=== PATIENT | male | born 1950 | race Caucasian/White ===

== ENCOUNTER 2017-03-25 01:22 | Inpatient (IN) | payer MEDICARE ==
--- NOTE | ~2017-03-25 | CR72 ---
[facility] A Service of [facility] RADIOLOGY TEXT RESULTS PATIENT: ORIN ROMERO LOCATION: [address] : [birth year] UNIT #: [id number] AGE: [address]: Arie Sharpe MD SEX: M ORDER DR: [id number] [facility] [address] [place], [place] [address] [id number] MR#: [id number] Acc #: [id number] NAME: ORIN ROMERO. : 1950 SEX: M STUDY DATE/TIME: 03/28/2017 16:29 UNIT: [facility] ROOM: [facility] STUDY DESCRIPTION: CR Chest Single View Portable Attending Physician: Arie Sharpe M.D. Ordering Physician: Adriano Monroe M.D. Primary Care Physician: Castro Wood M.D. MEDICAL IMAGING REPORT This report is preliminary unless electronic signature is present EXAM Portable chest INDICATIONS Status post thoracotomy. Chest tube placement. Followup. PROCEDURE Frontal view chest. COMPARISON 03/28/2017 at 05:23 hours FINDINGS There are 2 left-sided chest tubes in place, appropriately positioned. Small amount of subcutaneous emphysema along the lower left chest. The pleural effusion has significantly improved, and there is no visible pneumothorax. IMPRESSION 2 left-sided chest tubes in place. The left effusion is improved, and there is no visible pneumothorax. Dictated by... Jason Allen M.D. THIS IS AN ELECTRONICALLY VERIFIED REPORT Jason Allen M.D. at 03/29/2017 10:38 AM EVE/sadia TD: 03/28/2017 17:50 JOB #: [id number] [facility] A Service [facility] RADIOLOGY TEXT RESULTS PATIENT: ORIN ROMERO LOCATION: [address] : [birth year] UNIT #: [id number] AGE: [address]: Arie Sharpe MD SEX: M ORDER DR: MEDICAL IMAGING REPORT Page 1 of 1 COPY
--- NOTE | ~2017-03-25 | CO ---
Unit #: [id number] #: [id number] Patient: ORIN ROMERO [id number] [facility]. [place] [id number] [facility]. [place], [place] [address] [id number] MR#: [id number] NAME: ORIN ROMERO ROOM: 553 Age: 66 Sex: M Admission Date: 03/25/2017 : 1950 Attending Physician: Arie Sharpe M.D. Primary Care Physician: Castro Wood M.D. Consultation Date: 03/27/2017 CONSULTATION REPORT REASON FOR CONSULTATION Cardiac clearance for VATS. HISTORY OF PRESENT ILLNESS This is a 66-year-old white male who is known to Dr. Queen who she sees in the office. He had an ST elevated NE back in 2013, had a stent placed to the first obtuse marginal at the left circumflex. He had some other nonobstructive CAD. His ejection fraction at that time was 45%. His last MUGA scan was in June last year. It was 48%. The patient has COPD, hypertension, hyperlipidemia. He is still actively smoking. He came to the emergency room with complaints of left side lower ribcage area pain along with increased shortness of breath which was worsening in the last three days. The patient denies having any chest pain, pain in his neck, bilateral jaws, shoulders, arms or elbow. He denies any palpitations. No dizziness, presyncope or syncope. He is having occasional cough with yellow sputum but denies any hemoptysis. No fever or chills. He has not had any abdominal pain. No nausea, vomiting or diarrhea. Since x-rays and CT of the chest has been done, the patient was found to have a loculated left pleural effusion with some compressive atelectasis. Also, he has leukocytosis. The plans are for the patient to have a left VATS by Dr. Monroe possibly tomorrow if cardiology clears the patient. We have been consulted to evaluate. PAST MEDICAL HISTORY 1. In [address] elevated NE, status post cardiac cath, status post PCI and stent to the first obtuse marginal at the left circumflex. Other findings - left main had a distal 50% stenosis, LAD 40% stenosis, RCA mid 30% stenosis with LVEF of 45%. 2. 06/2016 2D echo. LVEF of 30% to 35% with severe inferior wall hypokinesis with mild mitral regurgitation, mild tricuspid regurgitation with small pericardial effusion. 3. Hypertension. 4. Hyperlipidemia. 5. Osteoarthritis. 6. COPD. 7. 06/2016 MUGA scan. 48%. 8. Nicotine abuse. 9. Problems with some hypotension. PAST SURGICAL HISTORY 1. Appendectomy. 2. Status post PCI and stent to the obtuse marginal at the left circumflex. Unit #: [id number] #: [id number] Patient: ORIN ROMERO 3. Knee surgery. HOME MEDICATIONS 1. Metoprolol 25 mg p.o. daily. 2. Simvastatin 20 mg p.o. daily at bedtime. 3. Plavix 75 mg daily. ALLERGIES No known drug allergies. SOCIAL HISTORY The patient lives with his family. He does smoke about a pack of cigarettes a day. He has been smoking all of his adult life. No alcohol or illicit drug abuse. FAMILY HISTORY He had an older brother that in his 20s from unknown causes. Other than that, his parents and other siblings are in generally well health. REVIEW OF SYSTEMS See details in HPI. PHYSICAL EXAMINATION GENERAL: On exam, Mr. Romero is a 66-year-old white male in no acute respiratory distress. He is awake, alert and oriented. VITAL SIGNS: Blood pressure is 114/61, heart rate 98, respirations 18, temperature 97.9, O2 sats 96% on room air. NECK: Trachea midline. No thyromegaly or lymphadenopathy. Normal carotid upstrokes. No jugular venous distention. HEART: S1, S2. Regular rate and rhythm. Soft systolic murmur left sternal border. LUNGS: Very diminished. Absent breath sounds in left lower lung base. ABDOMEN: Soft, nontender. Positive bowel sounds present. EXTREMITIES: Pedal pulses are palpable. No pedal edema. Pedal pulses are faint. DIAGNOSTIC STUDIES LABORATORY: ABGs on admission - pH 7.377, pCO2 39.8, pO2 56.3 and O2 sat was 87.8. Glucose is 231, BUN 15, creatinine 0.7, eGFR 98.4, sodium 138, potassium 4.9, chloride 104, CO2 25, calcium 8.5, total protein 7.1, albumin 3.6, bili total 1.0. AST 20, ALT 19, alkaline phos. is 76. TSH is 0.73. WBC elevated to 26.4, hemoglobin 11.9, hematocrit 36.4 and platelets of 359. Initial cardiac enzymes - CK MB less than 1.0, troponin less than 0.05, CK total 29, troponin less than 0.03. INR is 1.1. IMAGING: On admission, chest x-ray showed emphysema with left bibasilar pneumonia and also may be a left hilar mass. CT angio of the chest with PE protocol showed a dense consolidation involving the left lower lobe with a large loculated left pleural effusion. No air in the left lower lobe bronchial tree and concerning for a postobstructive process, possibly due to a mass or just severe mucus plugging, most concerning for pneumonia. Lymphadenopathy in the mediastinum. Underlying emphysema. Small amount of consolidation in the Unit #: [id number] #: [id number] Patient: ORIN ROMERO right lower lung. No evidence of pulmonary embolism or thoracic aortic dissection and probably a small amount of pericardial effusion. CARDIOVASCULAR: EKG shows normal sinus tachycardia with ventricular rate 101 beats/minute, low voltage in inferior leads in V1. Poor R wave progression. IMPRESSION 1. Acute on chronic hypoxic respiratory distress: He has a left loculated effusion with compressive atelectasis. 2. Exacerbation of chronic obstructive pulmonary disease. 3. Probable pneumonia. 4. History of coronary artery disease. In [address] elevated myocardial infarction, status post PCI and stent to the obtuse marginal at the left circumflex. 5. Left ventricular ejection fraction of 48% on MUGA scan 06/2016. Last echo showed left ventricular ejection fraction of 30% to 35%. 6. Hypotension. 7. Hyperlipidemia. 8. Nicotine abuse. PLAN 1. Cardiology consulted to evaluate patient to clear for surgery that Dr. Monroe plans to do in the next day or so. He wants to perform an LVAD with decortication. 2. On exam, there are no signs or symptoms of unstable angina or acute congestive heart failure. 2D echo has been ordered to re-evaluate and to make sure there is no pericardial effusion. 3. The plans are for the patient to have a thoracentesis today. 4. The patient has been on Plavix and aspirin since his heart attack. Will hold the Plavix for the procedure. His last dose was the day before yesterday. Continue patient on his statin. The patient is also on metoprolol 25 mg extended release. Will continue that with parameters and make any adjustments to avoid any hypotension. 5. The patient is on IV antibiotics. 6. Dr. Carrillo of [facility] is assisting with management. After Dr. Queen reviewed the patient's records and after examination and finding he had no symptoms of angina or congestive heart failure, she feels it is permissible to undergo a procedure at moderate acceptable risk. His Plavix has been held since yesterday. The patient will be ordered to get his beta sha perioperatively. We will follow this patient closely. Thank you very much for allowing us to assist in her care. Further recommendations pending per Dr. Queen. Dictated by... Annabel North A.P.R.N. for Benjamín Harry/sergio TD: 03/27/2017 11:05 JOB #: [id number] Unit #: [id number] #: [id number] Patient: ORIN ROMERO CONSULTATION REPORT Page 1 of 1 X Annabel North APRN CONSULTATION REPORT
--- NOTE | ~2017-03-25 | OR ---
Unit #: [id number] #: [id number] Patient: ORIN ROMERO [id number] [address] [place], [place] [address] [id number] MR#: [id number] NAME: ORIN ROMERO ROOM: [facility] Date of Procedure: 03/28/2017 Admission Date: 03/25/2017 Surgeon: Adriano Monroe M.D. : 1950 Attending Physician: Arie Sharpe M.D. Primary Care Physician: Castro Wood M.D. OPERATIVE REPORT PREOPERATIVE DIAGNOSIS Loculated left pleural effusion; left-sided pneumonia. POSTOPERATIVE DIAGNOSIS Loculated left pleural effusion; left-sided pneumonia. PROCEDURE PERFORMED Left video-assisted thoracoscopy with decortication. ANESTHESIA General. ESTIMATED BLOOD LOSS About 100 mL. DRAINS Two #28 chest tubes. COMPLICATIONS None. DESCRIPTION OF PROCEDURE The patient was taken to the operating room and placed on the operating room table in a supine position. After appropriate monitoring lines had been placed, general endotracheal anesthesia was then induced using a double-lumen endotracheal tube. Adequate positioning of this tube was ensured using the pediatric bronchoscope. A left radial arterial line was inserted per the Anesthesia Department. A Davila catheter was inserted. Following this, the patient was placed on the operating room table in a right lateral decubitus position. A rolled sheet was placed beneath the right axillary area. The patient was secured in place on the operating room table using a welch bag as well as tape across the left hip. The left arm was supported anteriorly on an arm support. The left chest was prepped with DuraPrep and draped in a sterile fashion. A small 1.5 cm skin incision was made in the midaxillary line at about the seventh intercostal space. The incision was carried down through the subcutaneous tissue and muscle and fascial layers using the Bovie. With the left lung being deflated, the chest was entered at this level using a gloved finger and a trocar introducer then inserted. The thoracoscope was then passed per this trocar introducer and examination of the pleural space carried out. In the lower chest, there was marked fibrinous exudative material present, which was grayish in color. This material covered the chest wall Unit #: [id number] #: [id number] Patient: ORIN ROMERO as well as the lung and seemed to entrap the lung somewhat. It extended up to involve most all of the left lower lobe and a portion of the left upper lobe. About a 4 cm skin incision was made in the anterior axillary line over the fifth intercostal space. The incision was carried down through the subcutaneous tissue and muscle and fascial layers with hemostasis being obtained using the Bovie. Following this, another small counterincision was made posteriorly in the chest for passage of instruments. Some of the fluid present in the left pleural space was aspirated free and sent for cytology as well as cultures. A large cupped forceps was used to remove as much of the loose debris from the pleural space as was possible. A large Cordova dissector was used to scrape the fibrinous debris from the chest wall as well as the diaphragm. As this material was dissected free, it was then removed from the chest cavity using the large cupped biopsy forceps or the suction. Lung was dissected free and then grasped with ring lung clamps. The large Cordova dissector was then used to dissect the fibrinous peel from the lung. This material was then removed from the chest cavity using the large cupped forceps. Some of the smaller material was removed using the suction. After as much of this material had been removed from the lung as was possible, the chest was irrigated with warm normal saline solution. This normal saline solution was aspirated free and then after a second irrigation had been carried out and suctioned free, two #28 chest tubes were inserted and brought out through separate stab wounds in the lower chest. They were sutured in place to the skin using 2-0 silk suture. They were then connected to a Pleur-evac. The 2 incisions in the chest were closed using 2-0 Vicryl for the muscle and fascial layer, 3-0 Vicryl for the subcutaneous tissue, and running 4-0 Vicryl subcuticular stitch for the skin. Sterile dressings were applied. Estimated blood loss in the procedure was about 100 mL. Sponge and needle counts in the operation were correct. The patient left the operating room in satisfactory condition. Dictated by... Benjamín Lauren/estrella TD: 03/28/2017 23:53 JOB #: [id number] OPERATIVE REPORT Page 1 of 1 X Adriano Monroe MD PROCEDURE OPERATIVE NOTE
--- NOTE | ~2017-03-25 | CR72 ---
[facility] A Service of [facility] RADIOLOGY TEXT RESULTS PATIENT: ORIN ROMERO LOCATION: [address] : [birth year] UNIT #: [id number] AGE: [address]: Arie Sharpe MD SEX: M ORDER DR: [id number] [facility] [address] [facility]. [place], [place] [address] [id number] I MR#: [id number] Acc #: [id number] NAME: ORIN ROMERO : 1950 SEX: M STUDY DATE/TIME: 03/31/2017 7:39 UNIT: [facility] ROOM: [facility] STUDY DESCRIPTION: CR Chest Single View Portable Attending Physician: Arie Sharpe M.D. Ordering Physician: Rosana Montaño A.P.R.N. Primary Care Physician: Castro Wood M.D. MEDICAL IMAGING REPORT This report is preliminary unless electronic signature is present EXAM Portable chest, 03/31/2017. HISTORY Status post chest tube removal today. Shortness of air. COMPARISON Chest 03/31/2017 at 0448 hours. FINDINGS Frontal chest demonstrates removal of the left-sided chest tubes. No pneumothorax. Bibasilar infiltrates are unchanged. Heart size and mediastinum are stable. IMPRESSION 1. Interval removal of the left-sided chest tubes. No visible pneumothorax. 2. No change in bibasilar infiltrates. Dictated by... Mauri Byrnes M.D. THIS IS AN ELECTRONICALLY VERIFIED REPORT Mauri Byrnes M.D. at 04/01/2017 6:20 AM KENNEDY/waqas TD: 03/31/2017 09:34 JOB #: [id number] MEDICAL IMAGING REPORT Page 1 of 1 COPY
--- NOTE | ~2017-03-25 | CO ---
Unit #: [id number] #: [id number] Patient: ORIN ROMERO [id number] [address] [place], [place] [address] [id number] MR#: [id number] NAME: ORIN ROMERO ROOM: [facility] Age: 66 Sex: M Admission Date: 03/25/2017 : 1950 Attending Physician: Arie Sharpe M.D. Primary Care Physician: Castro Wood M.D. Consultation Date: 03/31/2017 CONSULTATION REPORT REASON FOR CONSULTATION Pneumonia and antibiotic management. HISTORY OF PRESENT ILLNESS This is a 66-year-old male, who reports greater than two week history of increasing cough with whitish phlegm at home. The patient reports that he thought that this cough was different than his usual cough being a tobacco smoker for several years. The patient denied having any fever or chills at home. He reported that he did have some rhinorrhea but did not think much of it. The patient progressed to a significant left-sided chest pain with cough and came to the hospital to the emergency room. A CT scan of the chest was done which showed large left effusion which was loculated as well as some pneumonia. The patient had an attempted thoracentesis but eventually underwent a left video-assisted thoracotomy with decortication by Dr. Monroe three days ago. The patient, since the procedure, has had increasing right-sided infiltrate but improving leukocytosis and clinically the patient reports feeling much better. The patient is maintained on vancomycin, Zosyn, and azithromycin. PAST MEDICAL HISTORY Includes, coronary artery disease, status post stent in 2013, [place], right knee scope in 2007 and appendectomy in 2015. ALLERGIES No known allergies. MEDICATIONS As previously stated, vancomycin, Zosyn, and azithromycin. For further medications please refer to the patient's MAR. SOCIAL HISTORY Positive tobacco abuse, no alcohol abuse, no IV drug abuse. 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 REVIEW OF SYSTEMS The patient denies any significant fever, chills, or sweats at home. He denies any nausea, vomiting, or diarrhea. He denied any urinary tract infection, signs or symptoms, edema, or change in skin at home. He does report increasing left flank pain associated with cough with progressive productive sputum and cough. The patient denies any weight loss; however, on report to the surgery team, he did report some weight loss. PHYSICAL EXAMINATION Unit #: [id number] #: [id number] Patient: ORIN ROMERO VITAL SIGNS: Temperature is 97.8 with no documented fever, pulse is 57, blood pressure 130/80, and respiratory rate is 28. GENERAL: This is a no apparent distress male who is currently sitting in the chair on high flow oxygen. HEENT: His pupils are equal. NECK: His neck is supple. CARDIOVASCULAR: S1 and S2, regular rate and rhythm. PULMONARY: Diminished with faint rales noted in the bases on both left and right. Chest tube was recently removed. ABDOMEN: Positive bowel sounds, soft, and nontender. EXTREMITIES: No clubbing, cyanosis, or edema. DIAGNOSTIC STUDIES LABORATORY: BUN 20, creatinine 0.6, sodium 135, potassium 4.3, chloride 104, CO2 28, bilirubin 0.5, AST 58, ALT is 165, lactic acid 0.6, white blood cell count is 17.3, which is improved from 26.4, on March 27, hemoglobin 12.3, hematocrit 38.1, platelets 376. Pathology of lung tissue is currently pending, cultures are currently negative to date. Blood cultures are currently negative. DIAGNOSTIC IMAGING: Chest x-ray, left basilar air space opacity in right infrahilar air space opacity similar to prior studies. CT scan of the chest, on March 25, please see full report for complete details. There is a dense consolidation in the left lower lobe with loculated left pleural effusion. No evidence of pulmonary emboli. IMPRESSION This is a 66-year-old male, with greater than two week history of progressive cough different than his usual with sputum production that was white in nature with associated rhinorrhea. The patient denied any actual fever or chills at home. The patient had no exposure to ill persons but does have significant exposure in the past with toxins and chemicals including coal and tobacco, and worked at a chemical plant. The patient was found to have left-sided pneumonia with large effusion, status post video-assisted thoracotomy with decortication. Cultures are currently negative to date and cytology/pathology is currently pending. The patient remains in ICU and clinically reports doing much better but remains on high flow oxygen and chest film is concerning for increasing infiltrate on the right side of his lung. At this time, will continue broad spectrum antibiotics with vancomycin, Zosyn, and azithromycin. Would recommend to check urine for strep pneumo-antigen and Legionella as it appears that it has been ordered by not yet done. If the patient's chest x-ray continues to have increasing right-sided infiltrate may need to repeat a CT scan; however, the patient currently appears stable at this time and clinically feels like he is improving. This case will be discussed with Dr. Reynaldo Sainz who will evaluate this patient today. Thank you for allowing us to participate in the care of this patient. Further recommendations to follow pending the patient's clinical course. Unit #: [id number] #: [id number] Patient: ORIN ROMERO. Anastasiya Dove A.P.R.N. for Benjamín Perez/jack TD: 03/31/2017 12:09 JOB #: [id number] CONSULTATION REPORT Page 1 of 1 X X CONSULTATION REPORT
--- NOTE | ~2017-03-25 | EKG ---
PATIENT: ORIN ROMERO UNIT #: [id number] Ventricular Rate: 96 BPM Atrial Rate: 96 BPM P-R Interval: 114 ms QRS Duration: 82 ms Q-T Interval: 336 ms QTC Calculation(Bezet): 424 ms P Dennison: 73 degrees Calculated R Dennison: 67 degrees Calculated T Dennison: 59 degrees Diagnosis Line: Normal sinus rhythm Diagnosis Line: Low voltage QRS Diagnosis Line: Borderline ECG Diagnosis Line: When compared with ECG of 25-MAR-2017 02:57, Diagnosis Line: (unconfirmed) Diagnosis Line: No significant change was found Diagnosis Line: Confirmed by KRISSY BEAUCHAMP MD ([id number]) on 03/26/2017 Diagnosis Line: 5:45:25 AM INTERPRETING MD: QUYNH CATALAN
--- NOTE | ~2017-03-25 | CR72 ---
[facility] A Service of [facility] RADIOLOGY TEXT RESULTS PATIENT: ORIN ROMERO LOCATION: [place] [address] : [birth year] UNIT #: [id number] AGE: [address]: Arie Sharpe MD SEX: M ORDER DR: [id number] [facility] [address] [facility]. [place], [place] [address] [id number] I MR#: [id number] Acc #: [id number] NAME: ORIN ROMERO : 1950 SEX: M STUDY DATE/TIME: 03/28/2017 5:23 UNIT: [facility] ROOM: [facility] STUDY DESCRIPTION: CR Chest Single View Portable Attending Physician: Arie Sharpe M.D. Ordering Physician: Arie Sharpe M.D. Primary Care Physician: Casrto Wood M.D. MEDICAL IMAGING REPORT This report is preliminary unless electronic signature is present EXAM Portable chest HISTORY Chest pain, cough, shortness of air for three days. Previous thoracentesis 03/28. COMPARISON: 03/25 FINDINGS Today's portable view of the chest shows reaccumulation of the left pleural effusion. It is now moderate in size and there is left lower lobe atelectasis. The right lung is clear except for minimal right base atelectasis and the heart size is normal. Dictated by... Carlos Bingham M.D. THIS IS AN ELECTRONICALLY VERIFIED REPORT Carlos Bingham M.D. at 03/28/2017 8:41 AM CASSANDRA/brian TD: 03/28/2017 07:33 JOB #: [id number] MEDICAL IMAGING REPORT Page 1 of 1 COPY
--- NOTE | ~2017-03-25 | XA203 ---
[facility] A Service of [facility] & [facility] RADIOLOGY TEXT RESULTS PATIENT: ORIN ROMERO LOCATION: [facility] 55- : 50 UNIT #: [id number] AGE: [address]: Arie Sharpe MD SEX: M ORDER DR: [id number] [place] [id number] [facility]. [place], [place] [address] [id number] I MR#: [id number] Acc #: [id number] NAME: ORIN ROMERO : 1950 SEX: M STUDY DATE/TIME: 03/26/2017 15:17 UNIT: [facility] ROOM: [facility] STUDY DESCRIPTION: XA Thoracentesis Attending Physician: John Desai M.D. Ordering Physician: Nick Carrillo M.D. Primary Care Physician: Castro Wood M.D. MEDICAL IMAGING REPORT This report is preliminary unless electronic signature is present EXAM Attempted ultrasound guided thoracentesis HISTORY This patient is a 66-year-old patient who underwent a CT scan of the chest on 03/25/2017 which showed a left pleural effusion. This did appear to be partially loculated. PROCEDURE The risks, benefits, and alternatives to the procedure were explained to the patient and signed, informed consent was obtained. He was seated in the upright position and a preliminary ultrasound of the left hemithorax was performed. This demonstrated markedly complex material with no discrete drainable pockets of fluid seen. Debris and multiple septations were identified. At this point the procedure was terminated. IMPRESSION Markedly complex material within the left hemithorax without discrete drainable fluid collection seen. Innumerable septations and debris are identified within this collection. Thoracic surgery consultation suggested. Dictated by... Deanne Kaminski M.D. THIS IS AN ELECTRONICALLY VERIFIED REPORT Deanne Kaminski M.D. at 03/27/2017 4:43 PM AFF/jw TD: 03/27/2017 09:30 JOB #: [id number] STS. [facility] A Service of [facility] & [facility] RADIOLOGY TEXT RESULTS PATIENT: ORIN ROMERO LOCATION: [place] [address] : 50 UNIT #: [id number] AGE: [address]: Arie Sharpe MD SEX: M ORDER DR: MEDICAL IMAGING REPORT Page 1 of 1 COPY
--- NOTE | ~2017-03-25 | CT57 ---
[facility] A Service of [facility] & [facility] RADIOLOGY TEXT RESULTS PATIENT: ORIN ROMERO LOCATION: [facility] [id number] : 50 UNIT #: [id number] AGE: [address]: Arie Sharpe MD SEX: M ORDER DR: [id number] [facility] [address] [facility]. [place], [place] [address] [id number] I MR#: [id number] Acc #: [id number] NAME: ORIN ROMERO : 1950 SEX: M STUDY DATE/TIME: 04/01/2017 14:53 UNIT: [facility] ROOM: [facility] STUDY DESCRIPTION: CT Chest Wo Cont Attending Physician: Arie Sharpe M.D. Ordering Physician: Nick Carrillo M.D. Primary Care Physician: Castro Wood M.D. MEDICAL IMAGING REPORT This report is preliminary unless electronic signature is present EXAM Chest CT, no contrast, 04/01/2017 INDICATIONS 66-year-old male with shortness of air since March 22, left-sided chest pain for a week. Pneumonia. TECHNIQUE Noncontrast CT chest was performed and compared with 03/25/2017. This CT exam was performed with one or more of the following radiation dose reduction techniques: Automatic exposure control, adjustment of mA and/or kV according to patient size, and iterative reconstruction. FINDINGS CT CHEST: There is advanced emphysema. Trace to small right-sided effusion, new compared to the prior study. There is persistent consolidation in the right lower lobe, which may reflect atelectasis or pneumonia. On the left, there has been significant interval decrease in size of the left-sided effusion. Improved aeration of the left lower lobe. There is residual atelectasis or pneumonia in the left lung base. Associated with the major fissure, there is an area of probable rounded atelectasis although it has somewhat irregular margins and is somewhat nodular configuration, measuring up to 2.8 cm. Follow up to clearing after appropriate therapy is recommended. This area has either developed in the short term or was obscured on the prior study by the greater degree of consolidation. No pneumothorax. Included thyroid unremarkable. Small amount of pericardial fluid near the cardiac apex. No new axillary adenopathy. Probable reactive mediastinal nodes. Aorta demonstrates no aneurysm. There is old healed granulomatous disease. Coronary artery calcifications present. Included upper abdomen demonstrates mild anasarca and trace perihepatic STS. [facility] A Service of [facility] & [facility] RADIOLOGY TEXT RESULTS PATIENT: ORIN ROMERO LOCATION: [place] [address] : 50 UNIT #: [id number] AGE: [address]: Arie Sharpe MD SEX: M ORDER DR: ascites. No free air. No new suspicious bone lesion. IMPRESSION 1. Improved appearance of the lungs compared to the prior study. Improved aeration and decreasing consolidation of the left lower lobe since the prior study with residual atelectasis or pneumonia as described. 2. More nodular appearing area of probable rounded atelectasis in the superior segment, left lower lobe measures 2.8 cm. Follow up to clearing after appropriate therapy recommended. 3. Interval development of a trace to small right-sided effusion with persistent atelectasis or pneumonia in the right lung base. 4. Background changes of emphysema. 5. Small pericardial effusion. 6. Anasarca and a small amount of upper abdominal ascites. Dictated by... Ward Lutz M.D. THIS IS AN ELECTRONICALLY VERIFIED REPORT Ward Lutz M.D. at 04/01/2017 8:43 PM ATILIO/ashwin TD: 04/01/2017 16:34 JOB #: [id number] MEDICAL IMAGING REPORT Page 1 of 1 COPY
--- NOTE | ~2017-03-25 | EKG ---
PATIENT: ORIN ROMEOR UNIT #: [id number] Ventricular Rate: 89 BPM Atrial Rate: 89 BPM P-R Interval: 118 ms QRS Duration: 94 ms Q-T Interval: 370 ms QTC Calculation(Bezet): 450 ms P [place]: 65 degrees Calculated R [place]: 51 degrees Calculated T [place]: 39 degrees Diagnosis Line: Normal sinus rhythm Diagnosis Line: Low voltage QRS Diagnosis Line: Borderline ECG Diagnosis Line: When compared with ECG of 25-JUL-2014 06:46, Diagnosis Line: Premature atrial complexes are no longer Present Diagnosis Line: Vent. rate has increased BY 31 BPM Diagnosis Line: ST no longer elevated in Inferior leads Diagnosis Line: Nonspecific T wave abnormality now evident in Diagnosis Line: Anterior leads Diagnosis Line: Confirmed by AMBAR NUÑEZ MD ([id number]) on Diagnosis Line: 03/26/2017 8:36:41 AM INTERPRETING MD: JOAQUIN CATALAN
--- NOTE | ~2017-03-25 | CR72 ---
[facility] A Service of [facility] & [facility] RADIOLOGY TEXT RESULTS PATIENT: ORIN ROMERO LOCATION: [place] [address] : 50 UNIT #: [id number] AGE: [address]: John Desai MD SEX: M ORDER DR: [id number] [facility] [address] [place], [place] [address] [id number] I MR#: [id number] Acc #: [id number] NAME: ORIN ROMERO : 1950 SEX: M STUDY DATE/TIME: 03/25/2017 02:10 UNIT: [facility] ROOM: [facility] STUDY DESCRIPTION: CR Chest Single View Portable Attending Physician: John Desai M.D. Ordering Physician: Mario Graves M.D. Primary Care Physician: Castro Wood M.D. MEDICAL IMAGING REPORT This report is preliminary unless electronic signature is present EXAM Portable chest, 03/25 at 02:10 INDICATIONS Shortness of air and left side chest pain and weakness for 3 days. FINDINGS AP portable views of the chest are compared with 07/02/2015. There is emphysema. Right lung is clear. There is infiltrate at the left base, which likely reflects pneumonia. There is a potential left hilar mass. Follow up with a contrast-enhanced chest CT recommended. IMPRESSION Emphysema with left basilar pneumonia. There may be a left hilar mass. Follow up with contrast chest CT recommended. Dictated by... Jones Garcia Jr., M.D. THIS IS AN ELECTRONICALLY VERIFIED REPORT Jones Garcia Jr., M.D. at 03/25/2017 9:23 PM DHAVAL/ashwin TD: 03/25/2017 19:24 JOB #: [id number] MEDICAL IMAGING REPORT Page 1 of 1 COPY
--- NOTE | ~2017-03-25 | CR72 ---
[facility] A Service of [facility] RADIOLOGY TEXT RESULTS PATIENT: ORIN ROMERO [address]ATION: [address] : 50 UNIT #: [id number] AGE: [address]: Arie Sharpe MD SEX: M ORDER DR: [id number] [facility] [address]. [place], [place] [address] [id number] I MR#: [id number] Acc #: [id number] NAME: ORIN ROMERO : 1950 SEX: M STUDY DATE/TIME: 03/29/2017 04:36 UNIT: [facility] ROOM: [facility] STUDY DESCRIPTION: CR Chest Single View Portable Attending Physician: Arie Sharpe M.D. Ordering Physician: Adriano Monroe M.D. Primary Care Physician: Castro Wood M.D. MEDICAL IMAGING REPORT This report is preliminary unless electronic signature is present EXAM Portable chest 03/29/2017 04:36 INDICATION Pneumonia. Shortness of air. Left side chest pain. FINDINGS AP portable view of the chest is compared with 03/28/2017. Heart size stable. There is emphysema. 2 left chest tubes remain in place. No pneumothorax on either side of the chest. There is slight increase in infiltrate or atelectasis at the right base. Dictated by... Jones Garcia Jr., M.D. THIS IS AN ELECTRONICALLY VERIFIED REPORT Jones Garcia Jr., M.D. at 03/29/2017 10:14 PM DHAVAL/isaiah TD: 03/29/2017 07:23 JOB #: [id number] MEDICAL IMAGING REPORT Page 1 of 1 COPY
--- NOTE | ~2017-03-25 | EKG ---
PATIENT: ORIN ROMERO UNIT #: [id number] Ventricular Rate: 119 BPM Atrial Rate: 119 BPM P-R Interval: 130 ms QRS Duration: 86 ms Q-T Interval: 302 ms QTC Calculation(Bezet): 424 ms P [place]: 72 degrees Calculated R [place]: 55 degrees Calculated T [place]: 2 degrees Diagnosis Line: Sinus tachycardia Diagnosis Line: Low voltage QRS Diagnosis Line: Nonspecific T wave abnormality Diagnosis Line: Abnormal ECG Diagnosis Line: When compared with ECG of 25-MAR-2017 09:17, Diagnosis Line: (unconfirmed) Diagnosis Line: Nonspecific T wave abnormality, worse in Inferior Diagnosis Line: leads Diagnosis Line: Nonspecific T wave abnormality now evident in Diagnosis Line: Anterior leads Diagnosis Line: Confirmed by KRISSY BEAUCHAMP MD ([id number]) on 03/26/2017 Diagnosis Line: 5:51:19 AM INTERPRETING MD: QUYNH CATALAN
--- NOTE | ~2017-03-25 | CR71 ---
[facility] A Service of [facility] RADIOLOGY TEXT RESULTS PATIENT: ORIN ROMERO LOCATION: [place] [address] : 50 UNIT #: [id number] AGE: [address]: Arie Sharpe MD SEX: M ORDER DR: [id number] [facility] [address] [facility]. [place], [place] [address] [id number] I MR#: [id number] Acc #: [id number] NAME: ORIN ROMERO : 1950 SEX: M STUDY DATE/TIME: 04/02/2017 7:05 UNIT: C4 ROOM: [facility] STUDY DESCRIPTION: CR Chest Single View Attending Physician: Arie Sharpe M.D. Ordering Physician: Jama Nj M.D. Primary Care Physician: Castro Wood M.D. MEDICAL IMAGING REPORT This report is preliminary unless electronic signature is present EXAM Portable chest, 04/02 COMPARISON 04/01 HISTORY Pneumonia, shortness of breath, cough, symptoms beginning 03/25/2017. FINDINGS An AP portable view is obtained. Cardiac size is stable. Continued consolidation at the left base. There is some increased density in the right base that I think is largely fluid within the fissures and some atelectasis. CONCLUSION Continued left lower lobe consolidation. Patchy density at the right base likely largely pleural fluid. Dictated by... Rich Lawton M.D. THIS IS AN ELECTRONICALLY VERIFIED REPORT Rich Lawton M.D. at 04/03/2017 5:06 PM Sea TD: 04/02/2017 08:01 JOB #: [id number] MEDICAL IMAGING REPORT Page 1 of 1 COPY
--- NOTE | ~2017-03-25 | CO ---
Unit #: [id number] #: [id number] Patient: BRENDAN ROMERO [id number] [address] [place], [place] [address] [id number] I MR#: [id number] NAME: BRENDAN ROMERO ROOM: 553 Age: 66 Sex: M Admission Date: 03/25/2017 : 1950 Attending Physician: John Desai M.D. Primary Care Physician: Castro Wood M.D. Requesting Physician: Arie Sharpe M.D. CONSULTATION REPORT REASON FOR THE CONSULT Loculated left pleural effusion. HISTORY OF PRESENT ILLNESS Mr. Brendan Romero is a 66-year-old male with a 4-week history of productive cough with thick yellow sputum, which has been intermittent in nature. He denies any fever or chills. He denies night sweats, but he does report a 15-pound weight loss in the last 3-4 months. He does have some dyspnea on exertion and left flank pain, which feels like a dull pressure, but occasionally has a sharp pleuritic-type pain. This is the reason that he presented to the hospital, as he was having pain on inspiration. He underwent a CT of the chest, which revealed a large left pleural effusion, which appears to be loculated with some compressive atelectasis of the left lower lobe with some areas of consolidation and mediastinal adenopathy. Dr. Carrillo has evaluated the patient and requested interventional radiology perform a thoracentesis. Dr. Sharpe has requested Dr. Monroe evaluate the patient, as well. PAST MEDICAL HISTORY Coronary artery disease status post intracoronary stenting [address] elevated myocardial infarction, under the care of Dr. Queen, on Plavix at home. The patient denies any other past medical history. SURGERIES Cardiac catheterization with intracoronary stenting 2013 and a right knee arthroscopy in 2007, an appendectomy in 2016. SOCIAL HISTORY One pack per day x50 years smoker. Currently smoking. No history of ETOH or illicit drug use. REVIEW OF SYSTEMS The patient has left flank pain, pleuritic-type pain. Positive for a weight loss and positive productive cough. PHYSICAL EXAMINATION VITAL SIGNS: Temperature is 98, heart rate 84, respiratory rate 18, blood pressure 139/96. GENERAL APPEARANCE: Patient is a thin, well-groomed, tall male, 66 years old, fair historian regarding his own medical history. Accompanied by his . NEUROLOGIC: He is intact. He is hard of hearing but no other focal neuro deficits. NECK: His neck is supple. Trachea midline. No thyromegaly. Unit #: [id number] #: [id number] Patient: BRENDAN ROMERO LYMPHATICS: No palpable cervical, supraclavicular, occipital lymphadenopathy. SKIN: Warm and dry and pink. No ulcerations. No icterus. HEENT: Normocephalic. No facial asymmetry. Sclera anicteric. LUNGS: Decreased but few crackles noted in the bases. No increase in AP diameter. The patient is on O2 at 4 liters per nasal cannula. CARDIOVASCULAR: S1, S2 without rub, without murmur. No S3 or S4. No peripheral edema. ABDOMEN: His abdomen is flat, soft. Bowel sounds positive. Nontender. No hepatosplenomegaly. EXTREMITIES: Extremities are warm and dry. No edema. No ulcer. No clubbing. No cyanosis. DIAGNOSTICS LABS: BUN 15, creatinine 0.8, sodium 134, potassium 5.3. Hemoglobin 12.3, hematocrit 37.4, platelets 312, WBC 21.7, which is up from 14.9. IMPRESSION 1. Loculated left pleural effusion. 2. Compressive atelectasis with consolidation. 3. Leukocytosis. PLAN Agree with Dr. Carrillo's plan for interventional radiology to do a thoracentesis if feasible. Fluid should be sent for (1)___, cell count, LDH, protein, cytology. Thank you very much for allowing us to participate in the care of your patient. If you have any questions, please do not hesitate to call. Dictated by... Rosana Montaño A.P.R.N. for Adriano Monroe M.D. RAYMOND/lennox TD: 03/26/2017 16:21 JOB #: [id number] CONSULTATION REPORT Page 1 of 1 X Rosana Montaño APRN X CONSULTATION REPORT
--- NOTE | ~2017-03-25 | HP ---
Unit #: [id number] #: [id number] Patient: ORIN ROMERO [id number] [address] [place], [place] [address] [id number] I MR#: [id number] NAME: ORIN ROMERO. ROOM: 553 Age: 66 Sex: M Admission Date: 03/25/2017 : 1950 Attending Physician: John Desai M.D. Primary Care Physician: Castro Wood M.D. HISTORY AND PHYSICAL REASON FOR ADMISSION Acute hypoxic respiratory failure and left sided chest pain. HISTORY OF PRESENT ILLNESS The patient is a very pleasant 66-year-old male, not recently followed by any particular primary care physician but followed by cardiology, Dr. Queen, who states that over the past two weeks he began developing left sided chest pain/discomfort, worse with deep inspiration and/or movement. Over the past 24 hours, it worsened to the point where he could no longer ambulate. He became concerned for possible underlying myocardial infarction and, therefore, presented to the hospital for further evaluation. While he was evaluated in the emergency room, he received Zofran and morphine. Underwent a chest x-ray which raised the possibility of acute infiltrate and has been admitted for community-acquired pneumonia. On currently evaluating him on the telemetry floor, he states that his left sided chest pain is worse than it was when he first got here. PAST MEDICAL HISTORY 1. Prior history of acute STEMI in 2013. 2. COPD. 3. Ongoing tobacco abuse. 4. Hypertension. 5. Hyperlipidemia. 6. Osteoarthritis. PAST SURGICAL HISTORY 1. Knee surgery. 2. Appendectomy. 3. Cardiac stents. MEDICATIONS Home medications include: 1. Metoprolol. 2. Simvastatin. 3. Plavix. ALLERGIES No known drug allergies. FAMILY HISTORY Reviewed and noncontributory or non-pertinent. Unit #: [id number] #: [id number] Patient: ORIN ROMERO SOCIAL HISTORY Positive tobacco use, negative alcohol use, negative illicit drug use. REVIEW OF SYSTEMS Please see HPI. Twelve point otherwise negative except for those positives noted in the HPI. PHYSICAL EXAMINATION VITAL SIGNS: Temperature 98.9, pulse 112, respiratory rate 28, blood pressure 118/72. GENERAL APPEARANCE: The patient is a 66-year-old frail male lying comfortably, in no acute distress. HEAD EXAM: Atraumatic, normocephalic. NECK EXAM: Supple. No JVD, no carotid bruit. CVS: S1, S2. Tachycardic without murmur. RESPIRATORY: Coarse breath sounds are noted with scattered rhonchi. Prolonged expiration also noted. GI/ABDOMEN EXAM: Scaphoid abdomen noted. Nontender, nondistended. EXTREMITIES: Lower extremity exam - no history of lower extremity edema, no calf tenderness. NEUROLOGICAL EXAM: The patient is A and O x3. He is a bit hard of hearing. PSYCHIATRIC EXAM: The patient demonstrates normal mood and affect. DIAGNOSTIC STUDIES LABORATORY: Initial laboratory studies do yield BMP showing normal creatinine, blood glucose of 131. CBC showing white count of 17,000, hemoglobin 12.6, lactic acid level 0.6. Initial cardiac enzyme set was negative. INITIAL IMPRESSION 1. Left sided chest pain. 2. Community-acquired pneumonia. 3. Prior history of coronary artery disease with stent placement. 4. Ongoing tobacco abuse. 5. Probable chronic obstructive pulmonary disease. 6. Acute respiratory failure with likely chronic obstructive pulmonary disease exacerbation. 7. Failure to thrive. PLAN Admission to telemetry floor. Follow cardiac enzymes, EKG. Stat CT chest PE protocol to rule out acute pulmonary embolism. Solu-Medrol aerosols, IV antibiotics. Will await studies before planning further disposition. Appropriate symptom management will be achieved. Possible consultation to Dr. Vallejo if patient's chest pain does not resolve. It seems likely it is more pulmonary at this particular time. Plans have been reviewed with patient as well as his present at bedside in detail. Further hospital course to follow. Dictated by Arie Sharpe M.D. Unit #: [id number] #: [id number] Patient: ORIN ROMERO ISN/df TD: 03/27/2017 07:11 JOB #: [id number] HISTORY AND PHYSICAL Page 1 of 1 X Arie Sharpe MD HISTORY AND PHYSICAL
--- NOTE | ~2017-03-25 | EKG ---
PATIENT: ORIN ROMERO UNIT #: [id number] Ventricular Rate: 101 BPM Atrial Rate: 101 BPM P-R Interval: 130 ms QRS Duration: 90 ms Q-T Interval: 336 ms QTC Calculation(Bezet): 435 ms P [place]: 71 degrees Calculated R [place]: 52 degrees Calculated T [place]: 38 degrees Diagnosis Line: Sinus tachycardia Diagnosis Line: Low voltage QRS Diagnosis Line: Borderline ECG Diagnosis Line: When compared with ECG of 25-MAR-2017 15:05, Diagnosis Line: Nonspecific T wave abnormality no longer evident Diagnosis Line: in Lateral leads Diagnosis Line: Confirmed by AMBAR NUÑEZ MD ([id number]) on Diagnosis Line: 03/27/2017 1:29:13 PM INTERPRETING MD: JOAQUIN CATALAN
--- NOTE | ~2017-03-25 | DS ---
Unit #: [id number] #: [id number] Patient: ORIN ROMERO [id number] [address] [place], [place] [address] [id number] I MR#: [id number] NAME: ORIN ROMERO ROOM: 549 Age: 66 Sex: M Admission Date: 03/25/2017 : 1950 Discharge Date: 04/04/2017 Attending Physician: Arie Sharpe M.D. Primary Care Physician: Castro Wood M.D. DISCHARGE SUMMARY REASON FOR ADMISSION Acute hypoxic respiratory failure, left-sided chest pain. 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 Initially, he stated that he felt as though he had pulled a muscle in his side and subsequently when it worsened over the past 24 hours, he presented to the ER for further evaluation. He underwent a chest x-ray in the emergency room which raised the possibility of acute infiltrate and was being admitted secondary to community-acquired pneumonia. Through his hospital course, we initially started him on IV antibiotics. Eventually in consideration of his overall clinical picture, patient had underwent CT chest which did raise the possibility of a loculated left-sided pleural effusion and/or questionable postobstructive pneumonia. In regard to the same, consultation was then placed to pulmonary services, Dr. Carrillo, as well as, Dr. Monroe of thoracic surgery services. Patient underwent left-sided VATS procedure by Dr. Monroe. Postoperatively, he otherwise did well. He was placed in the ICU initially and subsequently was transitioned to telemetry floor. Dr. Monroe continued to follow the patient through his hospital course. Dr. Carrillo as cytology teacher and pulmonary services continued to follow him as well. Cardiology services, Dr. Queen, was consulted secondary to preoperative clearance. She saw and evaluated patient on March 27, 2017. He was cleared from their standpoint. Patient did undergo 2D echocardiogram this hospital admission which did reveal left ventricular systolic dysfunction with an ejection fraction 25% to 30%. Mild mitral and tricuspid regurgitation was noted. He did have an elevated white count, at one time peaking at approximately 26,400. He was initially on IV Solu-Medrol secondary to his underlying history of COPD, but in regard to his loculated left pleural effusion as well as pneumonia, we did place consultation to infectious disease Unit #: [id number] #: [id number] Patient: ORIN ROMERO alex who continued and maintained his antibiotics through his hospital course. At time of discharge, they made a recommendation for clindamycin as well as Levaquin to be continued for an additional four days. The patient will follow up with Dr. Monroe on April 12, 2017 at 1:30 p.m. at [facility]. Patient will follow up with Dr. Claudia Burton at [facility] in the next 7-10 days to establish care. Patient's resting O2 saturation is currently 85% and therefore, he will be discharged home with home O2. Overall, patient's prognosis is guarded if he continues to smoke on a daily basis. He states at the present time that he will be quitting. FINAL DISCHARGE DIAGNOSES 1. Left-sided loculated pleural effusion. 2. Postobstructive pneumonia. 3. Leukocytosis, likely secondary to pneumonia versus IV Solu-Medrol. 4. Failure to thrive. 5. Tobacco abuse. 6. Underlying chronic obstructive pulmonary disease. 7. Systolic heart failure, ejection fraction 25% to 30%. 8. Coronary artery disease with prior stent placement secondary to acute myocardial infarction. 9. O2 dependent chronic respiratory failure. DISCHARGE MEDICATIONS 1. DuoNeb aerosol solution q.6 hours scheduled. 2. Tylenol 650 mg p.o. q.6 p.r.n. 3. Toprol XL 12.5 mg p.o. daily. 4. Simvastatin 20 mg p.o. daily. 5. Pepcid 20 mg p.o. b.i.d. 6. Plavix 75 mg p.o. daily. 7. Percocet 5/325 one to two tablets p.o. q.4-6 p.r.n. 8. Prednisone 30 mg p.o. daily x5 days. 9. Levaquin 500 mg p.o. daily x4 days. 10. Clindamycin 600 mg p.o. q.8 x4 days. DISCHARGE CONDITION Stable. DISCHARGE DISPOSITION Home. FOLLOWUP As detailed above, Dr. Burton at [facility] within 7-10 days to coordinate care at time of discharge. Dictated by... Arie Sharpe M.D. Unit #: [id number] #: [id number] Patient: ORIN ROMERO WADE/henry TD: 04/05/2017 11:15 JOB #: [id number] DISCHARGE SUMMARY Page 1 of 1 X Arie Sharpe MD X DISCHARGE SUMMARY
--- NOTE | ~2017-03-25 | CR72 ---
[facility] A Service of [facility] RADIOLOGY TEXT RESULTS PATIENT: ORIN ROMERO LOCATION: [facility] [address] : [birth year] UNIT #: [id number] AGE: [address]: Arie Sharpe MD SEX: M ORDER DR: [id number] [facility] [address] [facility]. [place], [place] [address] [id number] I MR#: [id number] Acc #: [id number] NAME: ORIN ROMERO : 1950 SEX: M STUDY DATE/TIME: 04/04/2017 7:13 UNIT: [facility] ROOM: [facility] STUDY DESCRIPTION: CR Chest Single View Portable Attending Physician: Arie Sharpe M.D. Ordering Physician: Rosana Montaño A.P.R.N. Primary Care Physician: Castro Wood M.D. MEDICAL IMAGING REPORT This report is preliminary unless electronic signature is present EXAM Frontal chest 04/04/2017 INDICATION 66-year-old male with a history of chest tube removal. Prior smoker, shortness of air. COPD, hypertension. TECHNIQUE Frontal chest compared with 04/02/2017. FINDINGS Cardiac silhouette is within normal limits. Lung volumes are low. Vascularity is unremarkable. Stable to slight improvement of opacities in the left lung base. Trace to small left effusion. Improvement of opacities in the perihilar and lower lung zone on the right. Probable trace fluid on the right. Background changes of emphysema. No pneumothorax. IMPRESSION Slight improvement in the appearance of the chest compared with 04/02/2017. No pneumothorax. Dictated by... Ward Lutz M.D. THIS IS AN ELECTRONICALLY VERIFIED REPORT Ward Lutz M.D. at 04/04/2017 4:45 PM ATILIO/isaiah TD: 04/04/2017 07:40 JOB #: [id number] [facility] A Service of [facility] RADIOLOGY TEXT RESULTS PATIENT: ORIN ROMERO [id number] : [birth year] UNIT #: [id number] AGE: [address]: Arie Sharpe MD SEX: M ORDER DR: MEDICAL IMAGING REPORT Page 1 of 1 COPY
--- NOTE | ~2017-03-25 | CT16 ---
[facility] A Service of [facility] RADIOLOGY TEXT RESULTS PATIENT: ORIN ROMERO LOCATION: [facility] : [birth year] UNIT #: [id number] AGE: [address]: John Desai MD SEX: M ORDER DR: [id number] [facility] [address] [facility]. [place], [place] [address] [id number] I MR#: [id number] Acc #: [id number] NAME: ORIN ROMERO : 1950 SEX: M STUDY DATE/TIME: 03/25/2017 17:32 UNIT: [facility] ROOM: [facility] STUDY DESCRIPTION: CT Angio Chest for PE Attending Physician: John Desai M.D. Ordering Physician: Arie Sharpe M.D. Primary Care Physician: Castro Wood M.D. MEDICAL IMAGING REPORT This report is preliminary unless electronic signature is present EXAM CT chest, PE protocol INDICATIONS Chest pain and short of air for [address] of the chest performed in the axial plane during the intravenous administration of nonionic contrast media. This is followed by 3-D coronal MIP reconstructed images for the purpose of 3-D CT angiography of the pulmonary arteries. Dose of contrast 80 mL Isovue-370. This CT exam was performed with one or more of the following radiation dose reduction techniques: Automatic exposure control, adjustment of mA and/or kV according to patient size, and iterative reconstruction. There is no evidence for pulmonary embolus. There is no thoracic aortic dissection. There is dense consolidation of the left lower lobe and there is a large loculated-appearing fluid collection in the left hemithorax, which is most consistent with at least a exudative effusion. There are also some areas of low attenuation loculated either within the major fissure on the left side inferiorly and possibly within some necrotic lower lobe parenchyma. These areas measure up to about 2 cm in diameter. There is concern for occlusion of the left lower lobe bronchus. Air is not seen within it and this raises concern for a postobstructive process. Consider bronchoscopy to evaluate for the possibility of a mass lesion versus severe mucous plugging. Findings are most concerning for pneumonia, but a postobstructive pneumonia is certainly in the differential. There are enlarged lymph nodes also in the mediastinum which could be reactive or neoplastic. Multiple enlarged AP window lymph nodes are seen. Also enlarged precarinal lymph node measuring about 1.4 cm AP dimension. There is no pneumothorax. There are underlying emphysematous changes. There is some airspace disease dependently at the right base which is concerning for some component of aspiration or STS. [facility] A Service of [facility] RADIOLOGY TEXT RESULTS PATIENT: ORIN ROMERO LOCATION: [place] [address] : [birth year] UNIT #: [id number] AGE: [address]: John Desai MD SEX: M ORDER DR: pneumonia. Emphysematous changes are most apparent at apices. Concern for a small pericardial effusion also. IMPRESSION 1. There is dense consolidation involving the left lower lobe with a large loculated left pleural effusion, largest inferiorly posteriorly and laterally. Some of this fluid tracks into the inferior aspect of the major fissure on the left and is either loculated in the fissure or contiguous with some areas of parenchymal necrosis in the left lower lobe. These areas are low in attenuation and do not enhance like the remainder of the consolidated lung parenchyma. Additionally, I do not see air within the left lower lobe bronchial tree and this is concerning for a postobstructive process, possibly due to a mass, possibly due to severe mucous plugging. Findings are most concerning for pneumonia, possibly postobstructive in etiology, and correlation with bronchoscopy is suggested to evaluate for possible underlying malignancy. There is lymphadenopathy in the mediastinum. 2. Underlying emphysema. 3. Small amount of consolidation in the right lower lobe. 4. No evidence for pulmonary embolism or thoracic aortic dissection. No pneumothorax. Probably a small amount of pericardial fluid. STAT * RESULT Dictated by... Kalie Kovacs M.D. THIS IS AN ELECTRONICALLY VERIFIED REPORT Kalie Kovacs M.D. at 03/25/2017 8:43 PM ABIODUN/ashwin TD: 03/25/2017 18:48 JOB #: [id number] MEDICAL IMAGING REPORT Page 1 of 1 COPY
--- NOTE | ~2017-03-25 | CR72 ---
[facility] A Service of [facility] RADIOLOGY TEXT RESULTS PATIENT: ORIN ROMERO LOCATION: [place] [address] : [birth year] UNIT #: [id number] AGE: [address]: Arie Sharpe MD SEX: M ORDER DR: [id number] [facility] [address] [facility]. [place], [place] [address] [id number] I MR#: [id number] Acc #: [id number] NAME: ORIN ROMERO : 1950 SEX: M STUDY DATE/TIME: 04/01/2017 5:11 UNIT: [facility] ROOM: [facility] STUDY DESCRIPTION: CR Chest Single View Portable Attending Physician: Arie Sharpe M.D. Ordering Physician: Rosana Montaño A.P.R.N. Primary Care Physician: Castro Wood M.D. MEDICAL IMAGING REPORT This report is preliminary unless electronic signature is present EXAM Portable chest, 04/01/2017. HISTORY Shortness of air and cough for 7 days. COMPARISON Chest, 03/31/2017. FINDINGS Frontal chest demonstrates stable bibasilar infiltrates. No pneumothorax. Heart size and mediastinum are stable. IMPRESSION No interval change in bibasilar infiltrates. No pneumothorax. Dictated by... Mauri Byrnes M.D. THIS IS AN ELECTRONICALLY VERIFIED REPORT Mauri Byrnes M.D. at 04/02/2017 8:52 AM KENNEDY/waqas TD: 04/01/2017 07:28 JOB #: [id number] MEDICAL IMAGING REPORT Page 1 of 1 COPY
--- NOTE | ~2017-03-25 | CR72 ---
[facility] A Service of [facility] RADIOLOGY TEXT RESULTS PATIENT: ORIN ROMERO LOCATION: [address] : [birth year] UNIT #: [id number] AGE: [address]: Arie Sharpe MD SEX: M ORDER DR: [id number] [facility] [address] [facility] [place], [place] [address] [id number] I MR#: [id number] Acc #: [id number] NAME: ORIN ROMERO : 1950 SEX: M STUDY DATE/TIME: 03/31/2017 4:48 UNIT: [facility] ROOM: [facility] STUDY DESCRIPTION: CR Chest Single View Portable Attending Physician: Arie Sharpe M.D. Ordering Physician: Nick Carrillo M.D. Primary Care Physician: Castro Wood M.D. MEDICAL IMAGING REPORT This report is preliminary unless electronic signature is present EXAM Single view chest. INDICATION Shortness of air. Recent thoracentesis. Cough and chest pain. FINDINGS Single, portable, AP view of the chest compared to 03/30/2017. Left-sided chest tubes remain in place. No pneumothorax. Heart and mediastinal contours are unchanged. Left basilar airspace opacity and right infrahilar airspace opacity are similar to the prior studies. IMPRESSION No interval change. Dictated by... Shaw Mendoza M.D. THIS IS AN ELECTRONICALLY VERIFIED REPORT Shaw Mendoza M.D. at 03/31/2017 11:14 PM BOB/waqas TD: 03/31/2017 08:52 JOB #: [id number] MEDICAL IMAGING REPORT Page 1 of 1 COPY
--- NOTE | ~2017-03-25 | CO ---
Unit #: [id number] #: [id number] Patient: ORIN ROMERO [id number] [address] [place], [place] [address] [id number] I MR#: [id number] NAME: ORIN ROMERO ROOM: 553 Age: 66 Sex: M Admission Date: 03/25/2017 : 1950 Attending Physician: John Desai M.D. Primary Care Physician: Castro Wood M.D. CONSULTATION REPORT REASON FOR CONSULTATION Abnormal CT chest, pleural effusion, and pneumonia. CHIEF COMPLAINT Shortness of breath. HISTORY OF PRESENT ILLNESS A 66-year-old male presented with left flank pain, shortness of breath, and presented to the emergency room and was diagnosed with pneumonia and pleural effusion, admitted apparently on IV antibiotics. I am seeing the patient at the bedside complaining of mild shortness of breath. PAST MEDICAL HISTORY 1. COPD. 2. Coronary artery disease. 3. Hypertension. SOCIAL HISTORY One pack smoker per day. Denies alcohol, drug abuse. FAMILY HISTORY None as per record. MEDICATIONS As per MAR, has been reviewed. ALLERGIES Have been reviewed. PHYSICAL EXAMINATION VITAL SIGNS: Temperature 98, pulse 87, respirations 12, blood pressure 130/70. NEUROLOGIC: Awake, alert, oriented. No neuro deficit. HEENT: PERRLA plus 1. NECK: Supple. No JVD. CHEST: Bilateral air entry. Bilateral mild rhonchi. GASTROINTESTINAL: Nontender, soft. Bowel sounds positive. EXTREMITIES: No edema. SKIN: No rash. No ulcer. LYMPHATIC: No lymphadenopathy. DIAGNOSTIC STUDIES Labs and imaging have been reviewed. Unit #: [id number] #: [id number] Patient: ORIN ROMERO ASSESSMENT Left-sided pleural effusion, loculated, questionable postobstructive mass and acute hypoxic respiratory failure. PLAN Plan is to continue patient on broad-spectrum IV antibiotics, procalcitonin level, urine legionella, pneumococcal antigen. Patient will need thoracentesis. Will schedule for that. Please see orders for detailed plan. Thank you very much for this consultation. We will continue to follow the patient. Continue IV steroids, gastrointestinal/deep venous thrombosis prophylaxis. Dictated by... Nick Carrillo M.D. ANDRA/henry TD: 03/26/2017 15:11 JOB #: [id number] CONSULTATION REPORT Page 1 of 1 X Nick Carrillo MD CONSULTATION REPORT
--- NOTE | ~2017-03-25 | CR72 ---
[facility] A Service of [facility] RADIOLOGY TEXT RESULTS PATIENT: ORIN ROMERO LOCATION: [place] [address] : [birth year] UNIT #: [id number] AGE: [address]: Arie Sharpe MD SEX: M ORDER DR: [id number] [facility] [address] [facility] [place], [place] [address] [id number] I MR#: [id number] Acc #: [id number] NAME: ORIN ROMERO : 1950 SEX: M STUDY DATE/TIME: 03/30/2017 04:26 UNIT: [facility] ROOM: [facility] STUDY DESCRIPTION: CR Chest Single View Portable Attending Physician: Arie Sharpe M.D. Ordering Physician: Rosana Montaño A.P.R.N. Primary Care Physician: Castro Wood M.D. MEDICAL IMAGING REPORT This report is preliminary unless electronic signature is present EXAM Portable chest 03/30/2017 04:26 INDICATION Shortness of air. Left side chest pain. Chest tubes. FINDINGS AP portable chest compared with 03/29/2017. Heart size stable. Left chest tubes in place. No pneumothorax on either side. There is increasing right middle lobe infiltrate and there is stable consolidation at the left base. Dictated by... Jones Garcia Jr., M.D. THIS IS AN ELECTRONICALLY VERIFIED REPORT Jones Garcia Jr., M.D. at 04/02/2017 8:36 AM DHAVAL/isaiah TD: 03/30/2017 06:55 JOB #: [id number] MEDICAL IMAGING REPORT Page 1 of 1 COPY
--- NOTE | ~2017-03-25 | EKG ---
PATIENT: ORIN ROMERO UNIT #: [id number] Ventricular Rate: 87 BPM Atrial Rate: 87 BPM P-R Interval: 106 ms QRS Duration: 86 ms Q-T Interval: 354 ms QTC Calculation(Bezet): 425 ms P Lyndora: 64 degrees Calculated R [place]: 40 degrees Calculated T [place]: 40 degrees Diagnosis Line: Sinus rhythm with short MA Diagnosis Line: Low voltage QRS Diagnosis Line: Borderline ECG Diagnosis Line: When compared with ECG of 26-MAR-2017 10:45, Diagnosis Line: No significant change was found Diagnosis Line: Confirmed by KRISSY BEAUCHAMP MD ([id number]) on 03/28/2017 Diagnosis Line: 10:58:04 PM INTERPRETING MD: QUYNH CATALAN
[~2017-03-25 01:22] MED LIST: AMITRYPTYLINE PO; BAYER ASPIRIN325 M1 PO; CERTAGEN PO; EFFIENT5 MG PO; ENTERIC COATED ASA; FLEXERIL PO; LIPITOR40 MG PO; LORTAB 10/500 T1 TAB PO; LORTAB 7.5-5001 TAB PO; METOPROLOL SUCC25 MG PO; NAPROXEN PO; NORCO 10-325 TA1 TAB PO; TYLENOL325 M1 PO
[2017-03-25 02:35] LABS: BASOPHIL# 0.1 X10e3 (0-0.3); BASOPHIL% 0.8 % (0-2.5); EOSINOPHIL# 0.1 X10e3 (0-0.7); EOSINOPHIL% 0.4 % (0.0-7.0); HEMATOCRIT 43.8 % (38.0-50.0); HEMOGLOBIN 14.3 gm/dL (13.0-16.0); LYMPHOCYTE# 0.8 X10e3 (1.0-3.5); LYMPHOCYTE% 5.2 % (17.0-45.0); MEAN CELL VOLUME 89.7 FL (83-96); MEAN CORPUSCULAR HEMOGLOBIN 29.4 PG (28-34); MEAN CORPUSCULAR HGB CONC 32.8 g/dL (30-36); MONOCYTE# 0.9 X10e3 (0-1.0); MONOCYTE% 5.9 % (3.0-12.0); NEUTROPHIL# 13.1 X10e3 (1.5-7.1); NEUTROPHIL% 87.7 % (40-75); PLATELET COUNT 351 X10e3 (140-420); RED BLOOD COUNT 4.88 X10e (3.90-5.60); RED CELL DISTRIBUTION WIDTH 13.2 % (11.0-15.5); WHITE BLOOD COUNT 14.9 X10e3 (4.0-10.5)
[2017-03-25 02:37] LABS: DIFF IND NO
[2017-03-25 02:44] LABS: POC - CKMB <1.0 ng/mL (0.0-7.9); POC - TROPONIN <0.05 ng/mL (<=0.05)
[2017-03-25 03:00] LABS: ALBUMIN SERUM 3.6 g/dL (3.5-5.0); BUN/CREATININE RATIO 23.33; CALCIUM SERUM 8.6 mg/dL (8.4-10.2); CREATININE SERUM 0.9 mg/dL (0.6-1.4); GLOM FILT RATE Estimated 88.7 mL/min (>60); POTASSIUM 3.9 mmol/L (3.5-5.1); PROTEIN TOTAL SERUM 7.1 g/dL (6.0-8.3)
[2017-03-25 07:45] LABS: BASOPHIL# 0.1 X10e3 (0-0.3); BASOPHIL% 0.5 % (0-2.5); EOSINOPHIL% 0.1 % (0.0-7.0); HEMATOCRIT 39.7 % (38.0-50.0); HEMOGLOBIN 12.6 gm/dL (13.0-16.0); LYMPHOCYTE# 1.4 X10e3 (1.0-3.5); MEAN CELL VOLUME 90.5 FL (83-96); MEAN CORPUSCULAR HEMOGLOBIN 28.8 PG (28-34); MEAN CORPUSCULAR HGB CONC 31.8 g/dL (30-36); MEAN PLATELET VOLUME 7.8 FL (6.5-11.5); MONOCYTE# 1.4 X10e3 (0-1.0); MONOCYTE% 8.1 % (3.0-12.0); NEUTROPHIL# 14.2 X10e3 (1.5-7.1); NEUTROPHIL% 83.3 % (40-75); PLATELET COUNT 312 X10e3 (140-420); RED BLOOD COUNT 4.38 X10e (3.90-5.60); RED CELL DISTRIBUTION WIDTH 13.3 % (11.0-15.5)
[2017-03-25 07:50] LABS: DIFF IND YES
[2017-03-25 07:57] LABS: PLATELET ESTIMATE NORMAL (NORMAL)
[2017-03-25 08:29] LABS: BUN/CREATININE RATIO 23.75; CREATININE SERUM 0.8 mg/dL (0.6-1.4); GLOM FILT RATE Estimated 93.1 mL/min (>60); POTASSIUM 4.6 mmol/L (3.5-5.1)
[2017-03-25] MEDS ORDERED: PATIENT'S PHARMACY (09:24)
[2017-03-25] MEDS ORDERED: CLOPIDOGREL75 MG PO (09:31)
[2017-03-25] MEDS ORDERED: METOPROLOL SUCC25 MG PO (09:31)
[2017-03-25] MEDS ORDERED: SIMVASTATIN20 MG PO (09:31)
[2017-03-25 16:04] LABS: CK TOTAL 29 IU/L (36-174)
[2017-03-25 20:39] LABS: ARTERIAL BLD GAS O2 SATURATION 87.8 % (90.0-100.0); ARTERIAL BLOOD GAS CARBOXY HB 1.3 %sat (0.0-9.0); ARTERIAL BLOOD GAS HCO3 23.4 mmol/L; ARTERIAL BLOOD GAS MET HB 0.6 %sat (0.0-2.0); ARTERIAL BLOOD GAS PCO2 39.8 mmHg (35.0-45.0); ARTERIAL BLOOD GAS pH 7.377 (7.350-7.450)
[2017-03-25 20:40] LABS: ARTERIAL BLOOD GAS ALLEN TEST NORMAL; ARTERIAL BLOOD GAS ART SITE LEFT RADIAL; ARTERIAL BLOOD GAS DELIVERY VENTURI MASK; ARTERIAL BLOOD GAS PO2 56.3 mmHg (80.0-100); ARTERIAL DRAW? YES
[2017-03-25 21:53] LABS: CK TOTAL 29 IU/L (36-174)
[2017-03-26 07:24] LABS: HEMATOCRIT 37.4 % (38.0-50.0); HEMOGLOBIN 12.2 gm/dL (13.0-16.0); MEAN CELL VOLUME 89.3 FL (83-96); MEAN CORPUSCULAR HGB CONC 32.5 g/dL (30-36); MEAN PLATELET VOLUME 7.7 FL (6.5-11.5); RED BLOOD COUNT 4.19 X10e (3.90-5.60); WHITE BLOOD COUNT 21.7 X10e3 (4.0-10.5)
[2017-03-26 08:06] LABS: BUN/CREATININE RATIO 18.75; CALCIUM SERUM 8.5 mg/dL (8.4-10.2); CREATININE SERUM 0.8 mg/dL (0.6-1.4); GLOM FILT RATE Estimated 93.1 mL/min (>60); POTASSIUM 5.3 mmol/L (3.5-5.1)
[2017-03-26 14:32] LABS: INR 1.1; PARTIAL THROMBOPLASTIN TIME 28.6 SECONDS (23.5-31.3); PROTHROMBIN TIME (PATIENT) 11.9 SECONDS (9.6-11.5)
[2017-03-27 06:22] LABS: HEMATOCRIT 36.4 % (38.0-50.0); HEMOGLOBIN 11.9 gm/dL (13.0-16.0); MEAN CELL VOLUME 89.1 FL (83-96); MEAN CORPUSCULAR HEMOGLOBIN 29.1 PG (28-34); MEAN CORPUSCULAR HGB CONC 32.6 g/dL (30-36); MEAN PLATELET VOLUME 7.9 FL (6.5-11.5); RED BLOOD COUNT 4.09 X10e (3.90-5.60); RED CELL DISTRIBUTION WIDTH 13.1 % (11.0-15.5); WHITE BLOOD COUNT 26.4 X10e3 (4.0-10.5)
[2017-03-27 06:51] LABS: BUN/CREATININE RATIO 27.14; CALCIUM SERUM 8.5 mg/dL (8.4-10.2); CREATININE SERUM 0.7 mg/dL (0.6-1.4); GLOM FILT RATE Estimated 98.4 mL/min (>60); POTASSIUM 4.9 mmol/L (3.5-5.1)
[2017-03-28 04:39] LABS: HEMATOCRIT 36.8 % (38.0-50.0); HEMOGLOBIN 12.1 gm/dL (13.0-16.0); MEAN CELL VOLUME 88.9 FL (83-96); MEAN CORPUSCULAR HEMOGLOBIN 29.2 PG (28-34); MEAN CORPUSCULAR HGB CONC 32.9 g/dL (30-36); MEAN PLATELET VOLUME 7.6 FL (6.5-11.5); RED BLOOD COUNT 4.15 X10e (3.90-5.60); RED CELL DISTRIBUTION WIDTH 13.3 % (11.0-15.5); WHITE BLOOD COUNT 25.4 X10e3 (4.0-10.5)
[2017-03-28 04:56] LABS: INR 1.1; PARTIAL THROMBOPLASTIN TIME 29.4 SECONDS (23.5-31.3); PROTHROMBIN TIME (PATIENT) 11.4 SECONDS (9.6-11.5)
[2017-03-28 05:05] LABS: BUN/CREATININE RATIO 32.85; CALCIUM SERUM 8.7 mg/dL (8.4-10.2); CREATININE SERUM 0.7 mg/dL (0.6-1.4); GLOM FILT RATE Estimated 98.4 mL/min (>60); POTASSIUM 4.6 mmol/L (3.5-5.1)
[2017-03-28 16:38] LABS: ARTERIAL BLD GAS O2 SATURATION 83.9 % (90.0-100.0); ARTERIAL BLOOD GAS CARBOXY HB 0.7 %sat (0.0-9.0); ARTERIAL BLOOD GAS HCO3 26.2 mmol/L; ARTERIAL BLOOD GAS MET HB 0.4 %sat (0.0-2.0); ARTERIAL BLOOD GAS PCO2 39.4 mmHg (35.0-45.0)
[2017-03-28 16:39] LABS: ARTERIAL BLOOD GAS ART SITE ARTERIAL LINE; ARTERIAL BLOOD GAS PO2 47.7 mmHg (80.0-100); ARTERIAL DRAW? YES
[2017-03-28 16:58] LABS: HEMATOCRIT 37.4 % (38.0-50.0); HEMOGLOBIN 12.2 gm/dL (13.0-16.0)
[2017-03-28 17:16] LABS: BUN/CREATININE RATIO 35.71; CALCIUM SERUM 8.2 mg/dL (8.4-10.2); CREATININE SERUM 0.7 mg/dL (0.6-1.4); GLOM FILT RATE Estimated 98.4 mL/min (>60); POTASSIUM 4.8 mmol/L (3.5-5.1)
[2017-03-29 04:53] LABS: BASOPHIL% 0.2 % (0-2.5); HEMATOCRIT 35.7 % (38.0-50.0); HEMOGLOBIN 11.5 gm/dL (13.0-16.0); LYMPHOCYTE# 0.8 X10e3 (1.0-3.5); LYMPHOCYTE% 4.1 % (17.0-45.0); MEAN CELL VOLUME 89.6 FL (83-96); MEAN CORPUSCULAR HGB CONC 32.3 g/dL (30-36); MEAN PLATELET VOLUME 7.9 FL (6.5-11.5); MONOCYTE# 0.9 X10e3 (0-1.0); MONOCYTE% 4.6 % (3.0-12.0); NEUTROPHIL# 18.8 X10e3 (1.5-7.1); NEUTROPHIL% 91.1 % (40-75); PLATELET COUNT 372 X10e3 (140-420); RED BLOOD COUNT 3.98 X10e (3.90-5.60); RED CELL DISTRIBUTION WIDTH 13.5 % (11.0-15.5); WHITE BLOOD COUNT 20.6 X10e3 (4.0-10.5)
[2017-03-29 04:54] LABS: DIFF IND YES
[2017-03-29 05:04] LABS: PLATELET ESTIMATE NORMAL (NORMAL)
[2017-03-29 05:05] LABS: RBC NORMAL YES
[2017-03-29 05:10] LABS: ARTERIAL BLD GAS O2 SATURATION 85.2 % (90.0-100.0); ARTERIAL BLOOD GAS HCO3 27.8 mmol/L; ARTERIAL BLOOD GAS MET HB 0.5 %sat (0.0-2.0); ARTERIAL BLOOD GAS PCO2 38.9 mmHg (35.0-45.0); ARTERIAL BLOOD GAS pH 7.462 (7.350-7.450)
[2017-03-29 05:15] LABS: ARTERIAL BLOOD GAS ALLEN TEST NORMAL; ARTERIAL BLOOD GAS ART SITE RIGHT RADIAL; ARTERIAL BLOOD GAS DELIVERY VENTURI MASK; ARTERIAL BLOOD GAS PO2 49.9 mmHg (80.0-100); ARTERIAL DRAW? YES
[2017-03-29 06:52] LABS: ALBUMIN SERUM 1.8 g/dL (3.5-5.0); BILIRUBIN,TOTAL 0.5 mg/dL (0.2-2.0); CREATININE SERUM 0.5 mg/dL (0.6-1.4); POTASSIUM 5.3 mmol/L (3.5-5.1); PROTEIN TOTAL SERUM 4.3 g/dL (6.0-8.3)
[2017-03-30 04:48] LABS: BASOPHIL% 0.1 % (0-2.5); HEMATOCRIT 36.6 % (38.0-50.0); HEMOGLOBIN 11.7 gm/dL (13.0-16.0); LYMPHOCYTE% 5.9 % (17.0-45.0); MEAN CELL VOLUME 89.4 FL (83-96); MEAN CORPUSCULAR HEMOGLOBIN 28.6 PG (28-34); MEAN PLATELET VOLUME 7.7 FL (6.5-11.5); MONOCYTE# 0.6 X10e3 (0-1.0); MONOCYTE% 3.8 % (3.0-12.0); NEUTROPHIL# 14.6 X10e3 (1.5-7.1); NEUTROPHIL% 90.2 % (40-75); PLATELET COUNT 357 X10e3 (140-420); RED BLOOD COUNT 4.09 X10e (3.90-5.60); RED CELL DISTRIBUTION WIDTH 13.4 % (11.0-15.5); WHITE BLOOD COUNT 16.2 X10e3 (4.0-10.5)
[2017-03-30 04:49] LABS: DIFF IND NO
[2017-03-30 05:09] LABS: BUN/CREATININE RATIO 28.75; CALCIUM SERUM 8.2 mg/dL (8.4-10.2); CREATININE SERUM 0.8 mg/dL (0.6-1.4); GLOM FILT RATE Estimated 93.1 mL/min (>60); MAGNESIUM 2.2 mg/dL (1.6-3.0); POTASSIUM 4.8 mmol/L (3.5-5.1)
[2017-03-30 11:50] LABS: ARTERIAL BLD GAS O2 SATURATION 95.5 % (90.0-100.0); ARTERIAL BLOOD GAS CARBOXY HB 0.3 %sat (0.0-9.0); ARTERIAL BLOOD GAS HCO3 26.2 mmol/L; ARTERIAL BLOOD GAS MET HB 0.6 %sat (0.0-2.0); ARTERIAL BLOOD GAS PCO2 35.6 mmHg (35.0-45.0); ARTERIAL BLOOD GAS pH 7.475 (7.350-7.450)
[2017-03-30 11:53] LABS: ARTERIAL BLOOD GAS ALLEN TEST N; ARTERIAL BLOOD GAS ART SITE RIGHT RADIAL; ARTERIAL BLOOD GAS PO2 74.5 mmHg (80.0-100); ARTERIAL DRAW? YES
[2017-03-30 11:54] LABS: ARTERIAL BLOOD GAS DELIVERY HIFLOW 60L
[2017-03-31 04:09] LABS: ARTERIAL BLD GAS O2 SATURATION 95.7 % (90.0-100.0); ARTERIAL BLOOD GAS CARBOXY HB 0.9 %sat (0.0-9.0); ARTERIAL BLOOD GAS HCO3 29.2 mmol/L; ARTERIAL BLOOD GAS MET HB 0.9 %sat (0.0-2.0); ARTERIAL BLOOD GAS PCO2 39.2 mmHg (35.0-45.0); ARTERIAL BLOOD GAS PO2 88.9 mmHg (80.0-100); ARTERIAL BLOOD GAS pH 7.481 (7.350-7.450)
[2017-03-31 04:18] LABS: ARTERIAL BLOOD GAS ALLEN TEST NORMAL; ARTERIAL BLOOD GAS ART SITE RIGHT RADIAL; ARTERIAL BLOOD GAS DELIVERY HIGHFLOW; ARTERIAL DRAW? YES
[2017-03-31 04:35] LABS: BASOPHIL% 0.2 % (0-2.5); DIFF IND NO; HEMATOCRIT 38.1 % (38.0-50.0); HEMOGLOBIN 12.3 gm/dL (13.0-16.0); LYMPHOCYTE# 1.1 X10e3 (1.0-3.5); LYMPHOCYTE% 6.3 % (17.0-45.0); MEAN CELL VOLUME 89.2 FL (83-96); MEAN CORPUSCULAR HEMOGLOBIN 28.8 PG (28-34); MEAN CORPUSCULAR HGB CONC 32.3 g/dL (30-36); MEAN PLATELET VOLUME 7.8 FL (6.5-11.5); MONOCYTE# 0.7 X10e3 (0-1.0); MONOCYTE% 3.8 % (3.0-12.0); NEUTROPHIL# 15.5 X10e3 (1.5-7.1); NEUTROPHIL% 89.7 % (40-75); PLATELET COUNT 376 X10e3 (140-420); RED BLOOD COUNT 4.27 X10e (3.90-5.60); RED CELL DISTRIBUTION WIDTH 13.4 % (11.0-15.5); WHITE BLOOD COUNT 17.3 X10e3 (4.0-10.5)
[2017-03-31 05:35] LABS: ALBUMIN SERUM 1.8 g/dL (3.5-5.0); BILIRUBIN,TOTAL 0.5 mg/dL (0.2-2.0); BUN/CREATININE RATIO 33.33; CREATININE SERUM 0.6 mg/dL (0.6-1.4); GLOM FILT RATE Estimated 104.8 mL/min (>60); MAGNESIUM 2.1 mg/dL (1.6-3.0); POTASSIUM 4.3 mmol/L (3.5-5.1); PROTEIN TOTAL SERUM 4.9 g/dL (6.0-8.3)
[2017-04-01 05:48] LABS: HEMATOCRIT 40.6 % (38.0-50.0); HEMOGLOBIN 13.1 gm/dL (13.0-16.0); LYMPHOCYTE% 5.7 % (17.0-45.0); MEAN CELL VOLUME 88.9 FL (83-96); MEAN CORPUSCULAR HEMOGLOBIN 28.7 PG (28-34); MEAN CORPUSCULAR HGB CONC 32.2 g/dL (30-36); MEAN PLATELET VOLUME 7.9 FL (6.5-11.5); MONOCYTE# 0.6 X10e3 (0-1.0); MONOCYTE% 3.2 % (3.0-12.0); NEUTROPHIL# 16.8 X10e3 (1.5-7.1); NEUTROPHIL% 91.1 % (40-75); PLATELET COUNT 393 X10e3 (140-420); RED BLOOD COUNT 4.56 X10e (3.90-5.60); RED CELL DISTRIBUTION WIDTH 13.3 % (11.0-15.5); WHITE BLOOD COUNT 18.4 X10e3 (4.0-10.5)
[2017-04-01 05:50] LABS: DIFF IND YES
[2017-04-01 06:44] LABS: BUN/CREATININE RATIO 27.14; CALCIUM SERUM 8.1 mg/dL (8.4-10.2); CREATININE SERUM 0.7 mg/dL (0.6-1.4); GLOM FILT RATE Estimated 98.4 mL/min (>60); POTASSIUM 4.6 mmol/L (3.5-5.1)
[2017-04-01 07:58] LABS: PLATELET ESTIMATE NORMAL (NORMAL)
[2017-04-01 07:59] LABS: RBC NORMAL YES
[2017-04-02 03:19] LABS: BASOPHIL% 0.2 % (0-2.5); EOSINOPHIL# 0.1 X10e3 (0-0.7); EOSINOPHIL% 0.3 % (0.0-7.0); HEMATOCRIT 42.2 % (38.0-50.0); HEMOGLOBIN 13.6 gm/dL (13.0-16.0); LYMPHOCYTE# 2.5 X10e3 (1.0-3.5); LYMPHOCYTE% 10.6 % (17.0-45.0); MEAN CELL VOLUME 89.4 FL (83-96); MEAN CORPUSCULAR HEMOGLOBIN 28.7 PG (28-34); MEAN CORPUSCULAR HGB CONC 32.1 g/dL (30-36); MEAN PLATELET VOLUME 7.5 FL (6.5-11.5); MONOCYTE# 1.1 X10e3 (0-1.0); MONOCYTE% 4.8 % (3.0-12.0); NEUTROPHIL# 20.1 X10e3 (1.5-7.1); NEUTROPHIL% 84.1 % (40-75); PLATELET COUNT 399 X10e3 (140-420); RED BLOOD COUNT 4.72 X10e (3.90-5.60); RED CELL DISTRIBUTION WIDTH 13.3 % (11.0-15.5); WHITE BLOOD COUNT 23.9 X10e3 (4.0-10.5)
[2017-04-02 03:20] LABS: DIFF IND NO
[2017-04-02 03:40] LABS: BUN/CREATININE RATIO 21.25; CALCIUM SERUM 8.3 mg/dL (8.4-10.2); CREATININE SERUM 0.8 mg/dL (0.6-1.4); GLOM FILT RATE Estimated 93.1 mL/min (>60); POTASSIUM 4.4 mmol/L (3.5-5.1)
[2017-04-03 04:53] LABS: BASOPHIL# 0.2 X10e3 (0-0.3); BASOPHIL% 0.9 % (0-2.5); EOSINOPHIL# 0.1 X10e3 (0-0.7); EOSINOPHIL% 0.5 % (0.0-7.0); HEMATOCRIT 39.4 % (38.0-50.0); HEMOGLOBIN 12.7 gm/dL (13.0-16.0); MEAN CELL VOLUME 89.4 FL (83-96); MEAN CORPUSCULAR HEMOGLOBIN 28.7 PG (28-34); MEAN CORPUSCULAR HGB CONC 32.2 g/dL (30-36); MEAN PLATELET VOLUME 7.3 FL (6.5-11.5); MONOCYTE# 0.9 X10e3 (0-1.0); MONOCYTE% 4.5 % (3.0-12.0); NEUTROPHIL# 15.5 X10e3 (1.5-7.1); NEUTROPHIL% 79.1 % (40-75); PLATELET COUNT 390 X10e3 (140-420); RED BLOOD COUNT 4.41 X10e (3.90-5.60); RED CELL DISTRIBUTION WIDTH 13.4 % (11.0-15.5); WHITE BLOOD COUNT 19.7 X10e3 (4.0-10.5)
[2017-04-03 04:54] LABS: DIFF IND NO
[2017-04-04 04:21] LABS: HEMATOCRIT 41.2 % (38.0-50.0); HEMOGLOBIN 13.1 gm/dL (13.0-16.0); MEAN CORPUSCULAR HEMOGLOBIN 28.7 PG (28-34); MEAN CORPUSCULAR HGB CONC 31.9 g/dL (30-36); MEAN PLATELET VOLUME 7.2 FL (6.5-11.5); RED BLOOD COUNT 4.58 X10e (3.90-5.60); RED CELL DISTRIBUTION WIDTH 13.7 % (11.0-15.5)
[2017-04-04 05:26] LABS: CALCIUM SERUM 8.5 mg/dL (8.4-10.2); CREATININE SERUM 0.6 mg/dL (0.6-1.4); GLOM FILT RATE Estimated 104.8 mL/min (>60); POTASSIUM 4.4 mmol/L (3.5-5.1)
[2017-04-04] MEDS ORDERED: LEVAQUIN PO (13:00)
[2017-04-04] MEDS ORDERED: FAMOTIDINE PO (13:01)
[2017-04-04] MEDS ORDERED: CLEOCIN PO (13:01)
[2017-04-04] MEDS ORDERED: PREDNISONE10 MG PO (13:02)
[2017-04-04] MEDS ORDERED: PERCOCET5/325 PO (13:04)
[2017-04-04] MEDS ORDERED: COMBIVENT U/D3 M1 (13:12)
[2017-04-04] MEDS ORDERED: ZESTRIL2.5 M1 PO (13:14)
[2017-04-04] MEDS ORDERED: ACETAMINOPHEN325 MG PO (14:08)
== END 2017-04-04 14:41 | disposition home health service (06) | DRG 163 ==
LOC: CED 01:22 → C5B 04:35 → CEDOF 04:35 → CED 04:55 → C5B 13:53 → CEDOF 13:53 → C5B 03-27 09:33 → CICCU2 03-28 17:20 → C4C 04-01 11:30 → C5B 04-02 19:39
PROVIDERS: Emergency Medicine; Family Medicine; Internal Medicine; Nurse Practitioner; Nurse Practitioner Family; Radiology Diagnostic Radiology; Surgery
PROC: B32TYZZ Computerized Tomography (CT Scan) of Left Pulmonary Artery using Other Contrast (ICD-10-PCS; 2017-03-25)
PROC: B32SYZZ Computerized Tomography (CT Scan) of Right Pulmonary Artery using Other Contrast (ICD-10-PCS; 2017-03-25)
PROC: B246YZZ Ultrasonography of Right and Left Heart using Other Contrast (ICD-10-PCS; 2017-03-26)
PROC: 0BDP4ZZ Extraction of Left Pleura, Percutaneous Endoscopic Approach (ICD-10-PCS; principal; 2017-03-28 13:00)
DX: J44.0 Chronic obstructive pulmonary disease with (acute) lower respiratory infection (principal); J18.9 Pneumonia, unspecified organism; J96.21 Acute and chronic respiratory failure with hypoxia; I50.23 Acute on chronic systolic (congestive) heart failure; J90 Pleural effusion, not elsewhere classified; J98.11 Atelectasis; F17.210 Nicotine dependence, cigarettes, uncomplicated; J44.1 Chronic obstructive pulmonary disease with (acute) exacerbation; D72.829 Elevated white blood cell count, unspecified; F41.9 Anxiety disorder, unspecified; I10 Essential (primary) hypertension; E78.5 Hyperlipidemia, unspecified; I25.10 Atherosclerotic heart disease of native coronary artery without angina pectoris; Z95.5 Presence of coronary angioplasty implant and graft; I25.2 Old myocardial infarction; Z90.49 Acquired absence of other specified parts of digestive tract; I11.0 Hypertensive heart disease with heart failure; Z99.81 Dependence on supplemental oxygen; E87.5 Hyperkalemia
CPT/HCPCS: 36415; 36600; 71010; 71250; 71275; 80048; 80053; 80061; 80202; 82550; 82553; 82803; 83036; 83605; 83735; 83880; 84132; 84443; 84484; 85014; 85018; 85025; 85027; 85610; 85730; 86850; 86900; 86901; 86923; 87040; 87070; 87075; 87102; 87116; 87205; 87206; 87449; 87899; 90732; 93005; 93306; 94640; 94664; 94760; 94761; 96361; 96365; 96375; 97110; 97116; 97162; 97166; 97530; 99285; C9113; G0009; G0238; G8978-GP; G8979-GP; G8987-GO; G8988-GO; G8989-GO; J0330; J0456; J0696; J1644; J1650; J1940; J2060; J2250; J2270; J2370; J2405; J2543; J2710; J2920; J2930; J3010; J3370; Q9967

== ENCOUNTER → 2017-04-10 | Outpatient (CLI) | payer MEDICARE ==
[~2017-04-10] MED LIST changes: +ACETAMINOPHEN325 MG PO; +CLEOCIN PO; +CLOPIDOGREL75 MG PO; +COMBIVENT U/D3 M1; +FAMOTIDINE PO; +LEVAQUIN PO; +PATIENT'S PHARMACY; +PERCOCET5/325 PO; +PREDNISONE10 MG PO; +SIMVASTATIN20 MG PO; +ZESTRIL2.5 M1 PO
--- NOTE | ~2017-04-10 | CR63 ---
[facility] A Service of [facility] RADIOLOGY TEXT RESULTS PATIENT: ORIN ROEMRO LOCATION: [facility] : 50 UNIT #: [id number] AGE: [address]: Rosana Montaño APRN SEX: M ORDER DR: [id number] [facility] [address] [facility] [address] [place], [place] [address] [id number] O MR#: [id number] Acc #: [id number] NAME: ORIN ROMERO : 1950 SEX: M STUDY DATE/TIME: 04/10/2017 12:36 UNIT: [facility] ROOM: STUDY DESCRIPTION: CR Chest 2 View Attending Physician: Rosana Montaño A.P.R.N. Referring Physician: Rosana Montaño A.P.R.N. Ordering Physician: Rosana Montaño A.P.R.N. Primary Care Physician: Castro Wood M.D. MEDICAL IMAGING REPORT This report is preliminary unless electronic signature is present EXAM PA and lateral chest, dated 04/10/2017 COMPARISON 04/04/2017 HISTORY SUPPLIED Status post pleural effusion with chest tube placement 1 week ago. FINDINGS PA and lateral views are obtained and compared directly to the patient's last radiograph of 04/04. Heart size is stable. The infiltrate in the left base is improving. The pleural effusion in the right base has resolved. Continues to be some blunting of the left costophrenic angle. CONCLUSION Significant improvement in the left lower lobe infiltrate although it has not cleared completely. There is some remaining pleural fluid or pleural reaction. Right lung is now clear. Dictated by... Rich Lawton M.D. THIS IS AN ELECTRONICALLY VERIFIED REPORT Rich Lawton M.D. at 04/10/2017 4:50 PM NIDIA/sobeida TD: 04/10/2017 16:19 JOB #: [id number] MEDICAL IMAGING REPORT Page 1 of 1 COPY
== END | disposition home or self-care (01) ==
LOC: CRAD 12:19
DX: J90 Pleural effusion, not elsewhere classified (principal)
CPT/HCPCS: 71020

== ENCOUNTER → 2017-06-25 | Outpatient (CLI) | payer MEDICARE | END | disposition home or self-care (01) | LOC: CRC 06-13 10:00 | DX: J44.9 Chronic obstructive pulmonary disease, unspecified (principal); Z87.891 Personal history of nicotine dependence | CPT/HCPCS: 94060; 94726; 94729 ==

== ENCOUNTER → 2017-07-03 | Outpatient (CLI) | payer MEDICARE ==
--- NOTE | ~2017-07-03 | CT57 ---
[facility] A Service of [facility] RADIOLOGY TEXT RESULTS PATIENT: ORIN ROMERO LOCATION: [facility] : 50 UNIT #: [id number] AGE: [address]: Rosana Montaño APRN SEX: M ORDER DR: [id number] [facility] [address] [facility]. [place], [place] [address] [id number] O MR#: [id number] Acc #: [id number] NAME: ORIN ROMERO : 1950 SEX: M STUDY DATE/TIME: 07/03/2017 11:38 UNIT: [facility] ROOM: STUDY DESCRIPTION: CT Chest Wo Cont Attending Physician: Rosana Montaño A.P.R.N. Referring Physician: Rosana Montaño A.P.R.N. Ordering Physician: Rosana Montaño A.P.R.N. Primary Care Physician: Claudia Burton M.D. MEDICAL IMAGING REPORT This report is preliminary unless electronic signature is present EXAM CT chest without contrast. INDICATIONS Follow up from pneumonia and left pleural effusion from March of this year. TECHNIQUE CT of the chest was performed without contrast. Coronal and sagittal reformatted images were obtained. This CT exam was performed with one or more of the following radiation dose reduction techniques: automatic exposure control, adjustment of mA and/or kV according to patient size, and iterative reconstruction. COMPARISON Compared with 04/01/2017 FINDINGS Emphysema. Previously noted bilateral pleural effusions have resolved. The right lower lobe atelectasis/consolidation has resolved. There is minimal residual scarring/atelectasis in the left base and some minimal residual ground-glass opacity in the superior segment of the left lower lobe, but overall the appearance of the left lung is significantly improved. Stable micronodule in the lingula. Stable 7 mm nodule in the right middle lobe. No suspicious lymphadenopathy. No pleural effusion. Limited imaging of the upper abdomen is unremarkable. The bone windows are unremarkable. IMPRESSION Significant interval improvement in the appearance of the chest. Previously noted bilateral pleural effusions have resolved. The atelectasis/consolidation in the right lower lobe has resolved. The atelectasis/consolidation in the left lower lobe is nearly completely resolved with some minimal residual scarring/atelectasis in the lung base [facility] A Service of [facility] RADIOLOGY TEXT RESULTS PATIENT: ORIN ROMERO LOCATION: [facility] : 50 UNIT #: [id number] AGE: [address]: Rosana Montaño APRN SEX: M ORDER DR: and ground-glass opacity in the superior segment of the left lower lobe. Dictated by... Humberto Ryder M.D. THIS IS AN ELECTRONICALLY VERIFIED REPORT Humberto Ryder M.D. at 07/04/2017 5:29 PM FRITZ/radhames TD: 07/04/2017 12:11 JOB #: [id number] MEDICAL IMAGING REPORT Page 1 of 1 COPY
== END | disposition home or self-care (01) ==
LOC: CCAT 06-14 13:00
DX: J90 Pleural effusion, not elsewhere classified (principal); R91.8 Other nonspecific abnormal finding of lung field
CPT/HCPCS: 71250